=== PATIENT | female | born 1960 | race Caucasian/White ===

== ENCOUNTER → 2021-05-22 | Outpatient (REF) | payer BC, OTHER | LOC: M LAB REF 12:22 | PROVIDERS: ATTEND Obstetrics & Gynecology | DX: R30.0 Dysuria (principal) ==

== ENCOUNTER → 2021-09-02 | Outpatient (REF) | payer BC | LOC: M LAB REF 16:36 | PROVIDERS: ATTEND Obstetrics & Gynecology | DX: N95.0 Postmenopausal bleeding (principal); R30.0 Dysuria ==

== ENCOUNTER → 2021-10-09 | Outpatient (REF) | payer BC | LOC: M LAB REF 16:16 | PROVIDERS: ATTEND Obstetrics & Gynecology | DX: R30.0 Dysuria (principal) ==

== ENCOUNTER → 2021-11-04 | Outpatient (REF) | payer BC | LOC: M LAB REF 12:14 | PROVIDERS: ATTEND Obstetrics & Gynecology | DX: R35.0 Frequency of micturition (principal) ==